=== PATIENT | female | born 1975 | race Two or more races ===

== ENCOUNTER 2024-10-17 14:20 | Emergency (ER) | payer MEDICAID, SELFPAY ==
[2024-10-17 14:41] VITALS: BP 138/83; PULSE 87; RESP 18; TEMP 37.3; O2SAT 98; BMI 25.1
--- NOTE | 2024-10-17 14:48 | EDNOTE_ITS ---
ED General RME/HPI General Chief complaint: Flu Like Symptoms Stated complaint: FEVER TIMES 1 WEEK Time Seen by Provider: 10/17/24 14:47 Source: patient, RN notes reviewed and old records reviewed Arrival date/time: 10/17/24 14:20 Mode of arrival: ambulatory Limitations: no limitations RME / HPI RME / HPI narrative: 48yof presents to ED for intermittent subjective fevers x 1 week. Patient c/o mild headache and generalized body aches. She has been taking Advil and Tylenol which provide temporary relief, last dose at 0600 this morning. No congestion, cough, shortness of breath, chest pain, vomiting/diarrhea, abdominal pain or urinary symptoms reported. No sick contacts at home. Related Data Previous Rx's ?Medication ?Instructions ?Recorded hydrocodone 5 mg-acetaminophen 325 1 tab PO Q4H #30 ta bs 04/22/ mg tablet ([place]) ibuprofen 400 mg tablet 400 mg PO Q4H PRN pain #30 t abs 10/17/24 Allergies Allergy/AdvReac Type Severity Reaction Status Date / Time No Known Allergies Allergy Verified 10/17/24 14:23 Review of Systems Review of Systems Systems Reviewed: All systems reviewed, normal except as documented Constitutional Constitutional: Reports chills, Reports fever(s) and Reports headache(s) ENT Ears, Nose, Mouth, and Throat: Denies dizziness, Reports headache(s), Denies nasal congestion and Denies sore throat Cardiovascular Cardiovascular: Denies chest pain, Denies dyspnea and Denies syncope Respiratory Respiratory: Denies dyspnea Gastrointestinal Gastrointestinal: Denies abdominal pain, Denies diarrhea, Denies nausea and Denies vomiting Musculoskeletal Musculoskeletal: Reports myalgias Neurologic Neurologic: Denies dizziness, Reports headache(s) and Denies syncope Past Medical History Surgical History SURGICAL: Positive Section OTHER SURGICAL HX: D&C, eye surgery Social History SMOKING STATUS: Never smoker SUBSTANCE USE: does not use ALCOHOL: Never Past Medical History Comments PMH COMMENT: denies pmhx ED Exam General Limitations: Present no limitations General appearance: Present alert and in no apparent distress Head Head exam: Present atraumatic and normocephalic Eye Eye exam: Present normal appearance, PERRL and EOMI ENT ENT exam: Present normal exam and mucous membranes moist Neck Neck exam: Present normal inspection and full ROM Chest Chest inspection: Present normal inspection and symmetric chest wall rise Respiratory Respiratory exam: Present normal lung sounds bilaterally; Absent respiratory distress Cardiovascular Cardiovascular exam: Present regular rate and normal rhythm Extremities Exam Extremities exam: Present normal inspection and full ROM Neurological Exam Neurological exam: Present alert and oriented X3 Psychiatric Psychiatric exam: Present normal affect and normal mood Skin Skin exam: Present warm, dry, intact and normal color Course Quality Measures none Orders Category Date Time Status Bedside COVID-19 Antigen Test NOW Care 10/17/24 14:48 Completed Bedside Influenza A&B Antigen Test NOW Care 10/17/24 14:48 Completed CBC Stat Lab 10/17/24 15:00 Completed CMP [Comprehensive Metabolic Panel] Stat Lab 10/17/24 15:00 Completed Acetaminophen Tab [Tylenol ES Tab] Med 10/17/24 14:58 Discontinued 1,000 mg PO X1 ONE Vital Signs Vital signs: Vital Signs Temperature 99.2 F 10/17/24 14:41 Pulse Rate 87 10/17/24 14:41 Respiratory Rate 18 10/17/24 14:41 Blood Pressure 138/83 H 10/17/24 14:41 Pulse Oximetry (%) 98 10/17/24 14:41 Oxygen Delivery Method Room Air 10/17/24 14:41 MDM Patient data External records reviewed:: [facility] previous records (Admitted 04/22/2019 for missed , D&C) Clinical information provided by:: patient Social determinants that could affect healthcare access:: other (specify) (Poor access to healthcare, acculturation difficulty) Patient has the following chronic illnesses:: None How is presenting disease/condition affected by chronic disease/condition?: no chronic disease Evaluation data The following diagnostics were reviewed and interpreted by me:: lab results Lab and/or radiology exams considered but not ordered:: CXR: Lungs clear, no respiratory distress or hypoxia Interpretation Summary: Flu positive COVID-negative Medications Medications considered but not ordered:: No antibiotics or antivirals recommended at this time Medication administrations:: Medication Administration History Discontinued Medications Acetaminophen (Acetaminophen 500 Mg Tablet) 1,000 mg PO X1 ONE Stop: 10/17/24 14:59 Last Admin: 10/17/24 15:14 Dose: 1,000 mg Documented By: KF Above medication administered in ED Consultations Consultation(s) initiated? (list below): No Diagnosis Differential Diagnosis ED Complaint MDM: COVID, flu, viral illness, dehydration, electrolyte imbalance Most likely diagnosis given after review of the tests above:: Influenza Admission Indicated Admission indicated?: not indicated Explain why admission is indicated or not indicated:: Patient is clinically stable for outpatient management Admission Request Was there a request for admission?: No Disposition Plan Disposition Plan: Discharge Discharge Attestation Discharge Attestation: The patient and all family members were given an opportunity to ask questions and understood the discharge instructions. Discharge instructions specifically effects, indications for sooner follow up or return to the emergency department, and the expected course of current diagnosis. Patient condition: Stable Medical Decision Making MDM Narrative MDM Narrative: 48yof presents to ED for intermittent subjective fevers x 1 week. Patient c/o mild headache and generalized body aches. She has been taking Advil and Tylenol which provides temporary relief, last dose at 0600 this morning. No congestion, cough, shortness of breath, chest pain, vomiting/diarrhea, abdominal pain or urinary symptoms reported. No sick contacts at home. Flu A positive. Patient is nontoxic-appearing, afebrile, vitals are stable. No evidence of respiratory distress or hypoxia. Encouraged rest, fluids, symptomatic treatment, fever management as needed. Patient was updated on incidental finding of elevated LFTs. Possibly related to recent increase in Tylenol intake. Recommended PCP follow-up in 2 to 3 weeks for CMP recheck. Patient verbalized understanding and is comfortable with plan of care. Stable for discharge, RTED precautions given. Differential Diagnosis Differential Diagnosis: COVID, flu, viral illness, dehydration, electrolyte imbalance Lab Data 10/17/24 15:00 10/17/24 15:00 Labs: Lab Results 10/17/24 Range/Units 15:00 WBC 6.4 (3.6-11.0) Thou/mm3 RBC 3.93 L (4.00-5.20) Miln/mm3 Hgb 12.3 (12.0-16.0) g/dL Hct 36.8 (36.0-46.0) % MCV 94 (80-100) fL MCH 31.3 (25.0-35.0) pg MCHC 33.4 (31.0-37.0) g/dl RDW Std Deviation 50.0 H (36.4-46.3) fL Plt Count 225 (140-440) Thou/mm3 Neut % (Auto) 53 (37-80) % Lymph % (Auto) 32 (10-50) % [place] % (Auto) 13 H (0-12) % Eos % (Auto) 1 (0-10) % Baso % (Auto) 1 (0-2.5) % Neut # (Auto) 3.4 (1.8-7.7) Thou/mm3 Lymph # (Auto) 2.1 (1.0-4.8) Thou/mm3 [place] # (Auto) 0.8 (0.0-0.8) Thou/mm3 Eos # (Auto) 0.1 (0.0-0.5) Thou/mm3 Baso # (Auto) 0.0 (0.0-0.2) Thou/mm3 Immature Gran # (Auto) 0.02 H (0.00-0.00) Thou/mm3 Absolute Nucleated RBC 0.00 (0.00-0.00) Thou/mm3 Immature Gran % 0 (0-0) % Nucleated RBC % 0 (0) /100 WBC Sodium 138 (136-145) mMol/L Potassium 4.0 (3.4-5.1) mMol/L Chloride 106 (98-107) mMol/L Carbon Dioxide 26.8 (20.0-31.0) mMol/L Anion Gap 5 L (7-16) BUN 13 (9-23) mg/dL Creatinine 0.7 (0.6-1.3) mg/dL Estim Creat Clear Calc 68.2 (>60) mL/min eGFR > 60 (60 - ) See Note BUN/Creatinine Ratio 19 (12-20) Ratio Glucose 106 (74-106) mg/dL Calculated Osmolality 275 (275-295) Calcium 9.2 (8.3-10.6) mg/dL Corrected Calcium 9.2 (8.5-10.1) mg/dL Total Bilirubin 0.3 (0.3-1.2) mg/dL AST 190 H (0-34) U/L ALT 247 H (10-49) U/L Alkaline Phosphatase 259 H (46-116) U/L Total Protein 7.4 (5.7-8.2) gm/dL Albumin 4.2 (3.5-5.0) gm/dL Globulin 3.2 (2.3-3.5) gm/dL Albumin/Globulin Ratio 1.3 (1.2-2.2) Discharge Plan Plan Patient Disposition: HOME (Self Care) Patient condition on transfer: Stable Prescriptions/Referrals Prescriptions/Med Rec: New ibuprofen 400 mg tablet 400 mg PO Q4H PRN (Reason: pain) Qty: 30 0RF No Action hydrocodone-acetaminophen [[place]] 5-325 mg tablet 1 tab PO Q4H MDD 6 Qty: 30 0RF Referrals: No Primary/Family,Physician [Primary Care Provider] - In 1 week Problem List Clinical Impression: Influenza A Patient/Caregiver Discharge Instructions Education Materials: ED Influenza (Adult) Additional Instructions: Make sure to drink plenty of fluids, get plenty of rest. Ibuprofen can be taken every 4-6 hours as needed for fever or pain. Your liver enzymes are mildly elevated today. This is most likely related to the Tylenol you have taken for your fever. Please follow-up with your primary care provider in 2 to 3 weeks to have your liver labs rechecked. Avoid taking Tylenol for now. Print Language: [place] Stand Alone Forms: Soraida Award Info., Patient Portal Info Letter ULISSES/ISHAAN Supervising Physician ULISSES/ISHAAN Supervising Physician: Mahendra
[2024-10-17 15:14] LABS: Basophils % (Auto) 1 % (0-2.5); Eosinophils # (Auto) 0.1 Thou/mm3 (0.0-0.5); Eosinophils % (Auto) 1 % (0-10); Hematocrit 36.8 % (36.0-46.0); Hemoglobin 12.3 g/dL (12.0-16.0); Immature Granulocytes % (Auto) 0 % (0-0); Immature Granulocytes Auto 0.02 Thou/mm3 (0.00-0.00); Lymphocytes # (Auto) 2.1 Thou/mm3 (1.0-4.8); Lymphocytes % (Auto) 32 % (10-50); Mean Corpuscular HGB Conc 33.4 g/dl (31.0-37.0); Mean Corpuscular Hemoglobin 31.3 pg (25.0-35.0); Mean Corpuscular Volume 94 fL (80-100); Monocytes # (Auto) 0.8 Thou/mm3 (0.0-0.8); Monocytes % (Auto) 13 % (0-12); Neutrophils # (Auto) 3.4 Thou/mm3 (1.8-7.7); Neutrophils % (Auto) 53 % (37-80); Nucleated Red Blood Cell % 0 /100 WBC (0); Platelet Count 225 Thou/mm3 (140-440); Red Blood Count 3.93 Miln/mm3 (4.00-5.20); White Blood Count 6.4 Thou/mm3 (3.6-11.0)
[2024-10-17] MEDS: ACETAMINOPHEN 500 MG TABLET 1000 MG PO (15:14)
[2024-10-17 15:36] LABS: Alanine Aminotransferase 247 U/L (10-49); Albumin, Serum 4.2 gm/dL (3.5-5.0); Albumin/Globulin Ratio 1.3 (1.2-2.2); Alkaline Phosphatase 259 U/L (46-116); Anion Gap 5 (7-16); Aspartate Amino Transferase 190 U/L (0-34); BUN/Creatinine Ratio 19 Ratio (12-20); Bilirubin,Total 0.3 mg/dL (0.3-1.2); Blood Urea Nitrogen 13 mg/dL (9-23); Calcium 9.2 mg/dL (8.3-10.6); Calcium (Corrected) 9.2 mg/dL (8.5-10.1); Carbon Dioxide 26.8 mMol/L (20.0-31.0); Chloride 106 mMol/L (98-107); Creatinine (Component) 0.7 mg/dL (0.6-1.3); Estimated Creatinine Clearance 68.2 mL/min (>60); Globulin 3.2 gm/dL (2.3-3.5); Glucose 106 mg/dL (74-106); Osmolality,Calculated 275 (275-295); Sodium 138 mMol/L (136-145); Total Protein 7.4 gm/dL (5.7-8.2); eGFR > 60 See Note
== END 2024-10-17 16:50 | disposition home or self-care (01) ==
PROVIDERS: Physician Assistant; Emergency Provider Emergency Medicine
DX: J10.1 Influenza due to other identified influenza virus with other respiratory manifestations (principal)
CPT/HCPCS: 36415; 80053; 85025; 87400; 87811; 99283; A9270

== ENCOUNTER 2025-07-02 18:35 | Emergency (ER) | payer MEDICAID, SELFPAY ==
[2025-07-02 19:21] VITALS: BP 158/84; PULSE 64; RESP 18; TEMP 36.8; O2SAT 98
[2025-07-02] MEDS: HYDROcodone/APAP 5/325 TABLET 1 TAB PO (19:43)
--- NOTE | 2025-07-03 04:36 | EDNOTE_ITS ---
ED Dental RME/HPI General Chief complaint: Dental/Oral/Throat Stated complaint: Left upper and lower jaw pain, left cheek swollen Time Seen by Provider: 07/02/25 18:47 Arrival date/time: 07/02/25 18:35 This is a case of 49-year-old female who came in in the emergency room due to pain in the left upper and left lower dental patient had dental procedure 2 days ago and started to have the symptoms now with mild swelling on the left face that is patient decided to sought consult here in the emergency room no other symptoms noted Limitations: no limitations Related Data Previous Rx's ?Medication ?Instructions ?Recorded hydrocodone 5 mg-acetaminophen 325 1 tab PO Q4H #30 ta bs 04/22/19 mg tablet ([place]) ibuprofen 400 mg tablet 400 mg PO Q4H PRN pain #30 t abs 10/17/24 cephalexin 500 mg capsule 500 mg PO QID #40 caps 07/02 hydrocodone 5 mg-acetaminophen 325 1 tab PO Q6H PRN pa in #8 tabs 07/02/25 mg tablet Allergies Allergy/AdvReac Type Severity Reaction Status Date / Time No Known Allergies Allergy Verified 07/02/25 18:41 Review of Systems Review of Systems Systems Reviewed: All systems reviewed, normal except as documented Constitutional Constitutional: Reports system reviewed and no additional complaints, except as documented and Reports as per HPI Cardiovascular Cardiovascular: Reports system reviewed and no additional complaints, except as documented and Reports as per HPI Respiratory Respiratory: Reports system reviewed and no additional complaints, except as documented and Reports as per HPI Gastrointestinal Gastrointestinal: Reports system reviewed and no additional complaints, except as documented and Reports as per HPI Genitourinary Genitourinary: Reports system reviewed and no additional complaints, except as documented and Reports as per HPI Musculoskeletal Musculoskeletal: Reports system reviewed and no additional complaints, except as documented and Reports as per HPI Neurologic Neurologic: Reports system reviewed and no additional complaints, except as documented and Reports as per HPI Past Medical History Past Medical History NEUROLOGIC: Negative Neurological Disorders or Seizures CARDIAC: Negative Cardiac Disorders or Congestive Heart Failure RESPIRATORY: Negative Chronic Obstructive Pulmonary Disease (COPD) GASTROINTESTINAL: Negative Gastrointestinal Disorders GENITOURINARY: Positive Genitourinary Disorders and Kidney Stones; Negative Renal Disease REPRODUCTIVE: Positive Previous Pregnancies () MUSCULOSKELETAL: Negative Musculoskeletal Disorders ENDOCRINE: Negative Endocrine Disorders, Diabetes Mellitus Type 1 or Diabetes Mellitus Type 2 HEMATOLOGIC: Negative Blood Disorders, Anemia or Clotting Problems OTHER HISTORY: Positive Blood Transfusions; Negative Hospitalization, Falls or Anesthesia Reactions Surgical History SURGICAL: Positive Section Social History SMOKING STATUS: Never smoker SUBSTANCE USE: does not use ED Exam General Limitations: Present no limitations General appearance: Present alert, in no apparent distress and other (Patient is awake alert oriented not in distress nontoxic looking well-hydrated well- nourished) Head Head exam: Present atraumatic, normocephalic and normal inspection Eye Eye exam: Present normal appearance, PERRL and EOMI ENT ENT exam: Present normal exam, normal oropharynx and mucous membranes moist Expanded ENT Exam Teeth exam: Present dental caries Teeth numbered: 2 1. Dental Tenderness (Noted tenderness on the tooth #3 and 4 and 30 with gum swelling but no tooth avulsion noted tooth fracture noted tooth dental caries) Neck Neck exam: Present normal inspection, full ROM and trachea midline; Absent tenderness, meningismus, lymphadenopathy or thyromegaly Chest Chest inspection: Present normal inspection and symmetric chest wall rise; Absent tenderness Respiratory Respiratory exam: Present normal lung sounds bilaterally; Absent respiratory distress, wheezes, stridor, accessory muscle use or prolonged expiratory phase Cardiovascular Cardiovascular exam: Present regular rate, normal rhythm and normal heart sounds; Absent bradycardia, tachycardia, irregular rhythm or systolic murmur Abdominal Exam Abdominal exam: Present soft and normal bowel sounds Extremities Exam Extremities exam: Present normal inspection and full ROM Back Exam Back exam: Present normal inspection and full ROM Neurological Exam Neurological exam: Present alert, oriented X3, CN II-XII intact, normal gait and reflexes normal; Absent motor sensory deficit Psychiatric Psychiatric exam: Present normal affect and normal mood Skin Skin exam: Present warm, dry, intact and normal color Course Quality Measures none Orders Category Date Time Status HYDROcodone*/APAP 5/325 [[place] 5/325] Med 07/02/25 19:32 Discontinued 1 tab PO X1 ONE cephALEXin [Keflex] Med 07/02/25 19:32 Discontinued 500 mg PO X1 ONE Vital Signs Vital signs: Vital Signs Temperature 98.3 F 07/02/25 19:21 Pulse Rate 64 07/02/25 19:21 Respiratory Rate 18 07/02/25 19:21 Blood Pressure 158/84 H 07/02/25 19:21 Pulse Oximetry (%) 98 07/02/25 19:21 Oxygen Delivery Method Room Air 07/02/25 19:21 Oxygen saturation is 98% in room air Dental / Oral MDM Narrative MDM Narrative:: This is a case of 49-year-old female who came in in the emergency room due to pain in the left upper and lower dental pain patient had dental procedure 2 days ago and started to have the symptoms now with mild swelling on the left face that is patient decided to sought consult here in the emergency room no other symptoms noted physical examination patient is awake alert oriented not in distress nontoxic looking well-hydrated well-nourished noted mild to moderate tenderness on palpation when tapped by a tongue depressor on the left upper and lower dental pain, were mildly swollen and red with missing tooth but no tooth avulsion no tooth fracture or dental carry no Ludewig's sign and no drooling observed based on my physical examination and history patient symptoms suggestive of tooth infection [place] was given here and cephalexin was started patient will follow-up with PCP in 2 days for reevaluation and for any worsening symptoms or any emergent concern return precaution in the ER is advised she was also advised to see the dentist as soon as possible for dental procedure Patient was discharged with comfortable condition walking with stable gait. Patient verbalized no further complains explained diagnosis and answered patient question. Patient is comfortable with the proposed management plan including the need to follow up with his/her primary care physician and any specialist if applicable Discussed patient for any urgent condition or worsening sx, He/She needed to go to emergency room immediately or call 911. Patient acknowledge the responsibility to follow up as instructed and to monitor her/his symptoms. For any persistence of the symptoms for more than 3-5 days return precaution advised. Discussed the result of the test and was given printed discharge instruction Patient data External records reviewed:: [facility] [place] previous records Clinical information provided by:: patient Social determinants that could affect healthcare access:: none Patient has the following chronic illnesses:: None How is presenting disease/condition affected by chronic disease/condition?: no chronic disease (None) Evaluation data The following diagnostics were reviewed and interpreted by me:: other (specify) (None) Lab and/or radiology exams considered but not ordered:: None Interpretation Summary: None Medications / Prescriptions Medications or Prescriptions considered but not ordered:: Given Medication administrations:: Medication Administration History Discontinued Medications Hydrocodone Bitart/Acetaminophen (Hydrocodone/[place] 5/325 Tablet) 1 tab PO X1 ONE Stop: 07/02/25 19:33 Last Admin: 07/02/25 19:43 Dose: 1 tab Documented By: KIMBERLEY Cephalexin HCl (Cephalexin 250 Mg Capsule) 500 mg PO X1 ONE Stop: 07/02/25 19:33 Last Admin: 07/02/25 19:44 Dose: 500 mg Documented By: KIMBERLEY Given Consultations Consultation(s) initiated? (list below): No Diagnosis Dental Differential Diagnosis: dental caries, toothache and dental abscess Most likely diagnosis given after review of the tests above:: Tooth infection Admission Indicated Admission indicated?: not indicated Explain why admission is indicated or not indicated:: Not indicated Admission Request Was there a request for admission?: No Admission Attestation Admission request attestation: Not indicated Disposition Plan Disposition Plan: Discharge Discharge Attestation Discharge Attestation: The patient and all family members were given an opportunity to ask questions and understood the discharge instructions. Discharge instructions specifically effects, indications for sooner follow up or return to the emergency department, and the expected course of current diagnosis. Patient condition: Stable Discharge Plan Plan Patient Disposition: HOME (Self Care) Patient condition on transfer: Stable Prescriptions/Referrals Prescriptions/Med Rec: New hydrocodone-acetaminophen 5-325 mg tablet 1 tab PO Q6H MDD max 4 tabs per day PRN (Reason: pain) Qty: 8 0RF cephalexin 500 mg capsule 500 mg PO QID Qty: 40 0RF No Action hydrocodone-acetaminophen [[place]] 5-325 mg tablet 1 tab PO Q4H MDD 6 Qty: 30 0RF ibuprofen 400 mg tablet 400 mg PO Q4H PRN (Reason: pain) Qty: 30 0RF Problem List Clinical Impression: Pain, dental, Tooth infection Patient/Caregiver Discharge Instructions Education Materials: ED Dental Pain, ED Tooth Abscess Additional Instructions: It is very important to return to your dentist for further evaluation and treatment and possible dental procedure follow-up with your primary care physician in 2 days for reevaluation worsening symptoms or any emergent concern return in the emergency room immediately or call 911 take your medication as directed finish the course of antibiotic oral care is advuised Print Language: [place]ym[place] Stand Alone Forms: Soraida Award Info., Patient Portal Info Letter PA/ISHAAN Supervising Physician PA/ISHAAN Supervising Physician: dr maritza burch
== END 2025-07-02 20:30 | disposition home or self-care (01) ==
PROVIDERS: Emergency Provider Emergency Medicine; PCP Family Medicine
DX: R68.84 Jaw pain (principal); K04.7 Periapical abscess without sinus
CPT/HCPCS: 99281; A9270